=== PATIENT | male | born 1980 | race Caucasian/White ===

== ENCOUNTER 2018-05-04 18:23 | Emergency (ER) | payer SELFPAY ==
--- NOTE | 2018-05-04 18:55 | PDOC ---
Rapid Medical Evaluation Chief Complaint: Edema Time Seen by Provider: 05/04/18 18:52 Medical Evaluation: Allergies Allergy/AdvReac Type Severity Reaction Status Date / Time No Known Allergies Allergy Verified 01/07/16 21:56 05/04/18 18:53 I have performed a brief in person evaluation. The patient presents with a CC of : right lower extremities edema HPI: pt is a 37 YO male who states he was sedentary for 17 hours and noticed right LE edema x 1 week. Denies hx of DVT, denies CP, denies pleuritic pain. PE: Skin: Clear Lungs: Clear Heart: RRR MS: Moves all extremities without difficulty Neuro: Alert Psych: Appropriate affect I have ordered the following: Right LE Doppler US The patient will proceed to the ED for further evaluation. Discharge Disposition - Diagnosis Leg edema, right - Referrals - Patient Instructions - Post Discharge Activity
[2018-05-04 19:03] VITALS: BP 132/64; PULSE 87; TEMP 98.2; BMI 49.4
--- NOTE | 2018-05-04 20:12 | PDOC ---
History of Present Illness - General Chief Complaint: Pain, Acute Stated Complaint: RIGHT LEG PAIN Time Seen by Provider: 05/04/18 18:52 - History of Present Illness Initial Comments: 05/04/18 20:12 37 yo M with h/o morbid obesity s/p gastric bypass, HTN, HLD, paroxysmal A-fib s /p cardioblation( not on AC) who p/w RLE swelling and pain. Pt. reports acute onset of worsening, RLE swelling, redness and warmth beginning (), with no identifiable triggers. Pain worse with standing, and touch. Denies trauma to leg, but reports period of prolonged immobilization x 17 hours . Patient denies F/C, N/V, orthopnea, PND, cough, wheezing, CP, SOB, urinary complaints, abdominal pain, diarrhea, constipation, lightheadedness, weakness, sensory changes. PMHx: as noted above. Denies h/o DVT, or malignancy. ROS: as noted SHx: Denies tobacco, IVDA. Denies recent travel, surgery, trauma. Allergies: NKDA Past History - Past Medical History Allergies/Adverse Reactions: Allergies Allergy/AdvReac Type Severity Reaction Status Date / Time No Known Allergies Allergy Verified 05/04/18 18:59 Home Medications: Ambulatory Orders Atorvastatin Ca [Lipitor] 10 mg PO HS #14 tablet 01/09/16 Dabigatran Etexilate Mesylate [Pradaxa -] 150 mg PO BID #28 cap 01/09/16 Metoprolol Tartrate [Lopressor -] 50 mg PO BID #28 tablet 01/10/16 Erythromycin 0.5% Eye Ointment [Erythromycin 0.5% Eye Ointment -] 1 applic OU TID #1 tube 12/13/17 Sulfamethoxazole/Trimethoprim [Bactrim Ds Tablet] 1 each PO BID #13 tablet MDD 2 tab 05/04/18 Cardiac Disorders: Yes (afib w/ ablation) COPD: No GI Disorders: Yes (- Gastric Bypass 13 years ago) - Surgical History Abdominal Surgery: Yes (Gastric Bypass) - Suicide/Smoking/Psychosocial Hx Smoking History: Never smoked Have you smoked in the past 12 months: No Hx Alcohol Use: No Drug/Substance Use Hx: No Substance Use Type: None Review of Systems - Review of Systems Comments:: 05/04/18 20:57 GENERAL/CONSTITUTIONAL: No fever or chills. No weakness. HEAD, EYES, EARS, NOSE AND THROAT: No change in vision. No ear pain or discharge. No sore throat. CARDIOVASCULAR: No chest pain or shortness of breath RESPIRATORY: No cough, wheezing, or hemoptysis. GASTROINTESTINAL: No nausea, vomiting, diarrhea or constipation. GENITOURINARY: No dysuria, frequency, or change in urination. MUSCULOSKELETAL: + RLE swelling, edema. No joint or muscle swelling or pain. No neck or back pain. SKIN: No rash NEUROLOGIC: No headache, vertigo, loss of consciousness, or change in strength/ sensation. ENDOCRINE: No increased thirst. No abnormal weight change HEMATOLOGIC/LYMPHATIC: No anemia, easy bleeding, or history of blood clots. ALLERGIC/IMMUNOLOGIC: No hives or skin allergy. *Physical Exam - Vital Signs Last Vital Signs Temp Pulse Resp BP Pulse Ox 98.2 F 87 18 132/64 99 05/04/18 18:59 05/04/18 18:59 05/04/18 18:59 05/04/18 18:59 05/04/18 18:59 - Physical Exam Comments: 05/04/18 20:57 GENERAL: Awake, alert, and fully oriented, in no acute distress HEAD: No signs of trauma, normocephalic, atraumatic EYES: PERRLA, EOMI, sclera anicteric, conjunctiva clear ENT: Hearing grossly normal, nares patent, oropharynx clear without exudates. Moist mucosa NECK: Normal ROM, supple, no lymphadenopathy, JVD, or masses LUNGS: No distress, speaks full sentences, clear to auscultation bilaterally HEART: Regular rate and rhythm, normal S1 and S2, no murmurs, rubs or gallops, peripheral pulses normal and equal bilaterally. ABDOMEN: Soft, nontender, normoactive bowel sounds. No guarding, no rebound. No masses EXTREMITIES : + RLE edema > LLE, and RLE warmth, firm, ttp, and blanching erythema on posterior and lateral leg extending from popliteal fossa to lateral malleolus. Neg crepitus, drainage, streaking, lesions, induration. LLE is normal inspection, normal range of motion, no clubbing or cyanosis. Medical Decision Making - Medical Decision Making 05/04/18 20:57 37 yo M with h/o morbid obesity s/p gastric bypass, HTN, HLD, paroxysmal A-fib s /p cardioblation( not on AC) who p/w RLE swelling and pain. VSS, AF, A&Ox3. + RLE swelling, erythema, ttp, and warmth. RLE neurovasculalry intact. DUPLEX RLE r/o DVT. No evidence of phlegmasia, or lymphangitis. Possible cellulitis. No evidence of end organ dysfunction, SIRS criteria, deep space involvement, systemic s/s. No evidence PE. ED Course: 05/04/18 21:06 RLE: U/S No evidence of DVT. 05/04/18 21:11 Bactrim DS in ED Bactrim sent to pharmacy 05/04/18 22:17 Patient stable for d/c with return precautions. Advised to f/u with PMD. *DC/Admit/Observation/Transfer Diagnosis at time of Disposition: Cellulitis of leg without foot - Discharge Dispostion Condition at time of disposition: Stable Decision to Admit order: No - Prescriptions Prescriptions: Sulfamethoxazole/Trimethoprim [Bactrim Ds Tablet] 1 each PO BID #13 tablet MDD 2 tab - Referrals Referrals: Edgar Storey MD [Staff Physician] - - Patient Instructions Printed Discharge Instructions: DI for Cellulitis -- Adult Additional Instructions: Please return to the emergency department with any new or worsening symptoms or concerns. Please follow up with your primary care physician within 72 hours. Please take Bactrim two times a day for 1 week. - Post Discharge Activity - Attestations Physician Attestion: 05/04/18 21:12 I attest to the information provided in this note.
[2018-05-04] MEDS ORDERED: CEPHALEXIN MONOHYDRATE 500 MG CAPSULE (UD) PO ONE (21:09)
[2018-05-04] MEDS ORDERED: SULFAMETHOXAZOLE/TRIMETHOPRIM 800MG/160MG D.S. TABLET PO ONE (21:10)
[2018-05-04] MEDS ORDERED: SULFAMETHOXAZOLE/TRIMETHOPRIM 800MG/160MG D.S. TABLET ONE (21:11)
--- NOTE | 2018-05-04 22:28 | PDOC ---
Attending Attestation - HPI HPI: 05/04/18 22:36 The patient is a 37 year old male with a significant past medical history if morbid obesity s/p gastric bypass, HTN, HLD, paroxysmal A-fib s/p cardioversion (not on AC) who presents to the emergency department with RLE swelling, redness , and pain since (04/29/18). The patient reports pain exacerbation with standing and palpation. The patient reports a period of prolonged immobilization x 17 hours on 04/29/18 because of snow. The patient denies chest pain, shortness of breath, headache and dizziness. The patient denies fever, chills, nausea, vomit, diarrhea and constipation. The patient denies dysuria, frequency, urgency and hematuria. Allergies: NKDA - Physicial Exam PE: 05/04/18 22:36 GENERAL: (+) morbidly obese. Awake and alert. No acute distress. HEENT: Normocephalic, atraumatic. PERRLA, EOMI. No conjunctival pallor. Sclera are non- icteric. Moist mucous membranes. Oropharynx is clear. NECK: Supple. Full ROM. No JVD. Carotid pulses 2+ and symmetric, without bruits. No thyromegaly. No lymphadenopathy. CARDIOVASCULAR: Regular rate and rhythm. No murmurs, rubs, or gallops. Distal pulses are 2+ and symmetric. PULMONARY: No evidence of respiratory distress. Lungs clear to auscultation bilaterally. No wheezing, rales or rhonchi. ABDOMINAL: (+) Protuberant. Soft. Non-tender. Non-distended. No rebound or guarding. No organomegaly. Normoactive bowel sounds. MUSCULOSKELETAL Normal range of motion at all joints. No bony deformities or tenderness. No CVA tenderness. EXTREMITIES: No cyanosis. No clubbing. SKIN: (+) RLE has an 8cm area of erythema to upper calf. No streaking or induration. No fluctuance. Tenderness to palpation. No signs of lymphangitis. Warm and dry. Normal capillary refill. No rashes. No jaundice. NEUROLOGICAL: Alert, awake, appropriate. Cranial nerves 2-12 intact. Normoreflexic in the upper and lower extremities. Normal speech. Toes are down-going bilaterally. PSYCHIATRIC: Cooperative. Good eye contact. Appropriate mood and affect. - Medical Decision Making 05/04/18 22:37 Documentation prepared by Oxana Aguirre, acting as medical technical writer for Dejah Jordan MD <Oxana Aguirre - Last Filed: 05/04/18 22:36> - Resident Resident Name: Quentin Dodd - ED Attending Attestation I have performed the following: I have examined & evaluated the patient, The case was reviewed & discussed with the resident, I agree w/resident's findings & plan, Exceptions are as noted - Medical Decision Making 05/04/18 22:51 imp early cellulitis antibiotics po plan - start bactrim and follow up w clinic <Dejah Jordan - Last Filed: 05/04/18 22:56>
== END 2018-05-04 22:52 | disposition home or self-care (01) ==
LOC: JER 18:23
DX: L03.115 Cellulitis of right lower limb (principal); I10 Essential (primary) hypertension; E78.00 Pure hypercholesterolemia, unspecified; I48.0 Paroxysmal atrial fibrillation; E66.01 Morbid (severe) obesity due to excess calories; Z68.42 Body mass index [BMI] 45.0-49.9, adult; Z98.84 Bariatric surgery status
CPT/HCPCS: 93971-TC; 99281-25

== ENCOUNTER 2024-01-21 16:31 | Emergency (ER) | payer OTHER ==
[2024-01-21 16:58] VITALS: BP 113/76; PULSE 59; RESP 18; TEMP 98.2; BMI 48.8
[2024-01-21] MEDS ORDERED: IBUPROFEN 600 MG TABLET (FP) PO ONE (17:08)
[2024-01-21] MEDS: IBUPROFEN 600 MG TABLET (FP) PO ONE (17:10)
== END 2024-01-21 17:41 | disposition home or self-care (01) ==
LOC: FER 16:31
DX: M25.561 Pain in right knee (principal); X50.1XXA Overexertion from prolonged static or awkward postures, initial encounter
CPT/HCPCS: 73562-TC-RT-FY; 99283-25